=== PATIENT | male | born 1960 | race Caucasian/White ===

== ENCOUNTER 2017-11-04 20:20 | Inpatient (IN) | payer BC, OTHER ==
[2017-11-04] MEDS: SODIUM CHLORIDE 0.9% 1L BAG IV* (22:16)
[2017-11-04] MEDS: PIPER-TAZO 3.375 GM IV (PMX) 100 ML IVPB (22:17)
[2017-11-04 22:41] LABS: ADD MAN DIFF? NO
[2017-11-04 22:43] LABS: WHITE BLOOD COUNT 13.6 10^3/ul (4.8-10.8)
[2017-11-04 22:43] LABS: BASOPHILS % 0.3 % (0.0-2.0); HEMOGLOBIN 14.5 g/dl (14.0-18.0); LYMPHOCYTES # 0.7 10^3/ul (0.8-2.9); LYMPHOCYTES % 5.4 % (15.0-51.0); MEAN CORPUSCULAR HEMOGLOBIN 29.4 pg (29.0-33.0); MEAN CORPUSCULAR HGB CONC 33.7 g/dl (32.0-37.0); MEAN CORPUSCULAR VOLUME 87.2 fl (82.0-101.0); MEAN PLATELET VOLUME 10.1 fl (7.4-10.4); MONOCYTE # 0.6 10^3/ul (0.3-0.9); MONOCYTES % 4.3 % (0.0-11.0); NEUTROPHIL # 12.2 10^3/ul (1.6-7.5); NEUTROPHILS % 89.5 % (39.0-77.0); PLATELET COUNT 136 10^3/UL (140-415); POSITIVE DIFF @See below; RED BLOOD COUNT 4.93 10^6/ul (4.70-6.10); RED CELL DISTRIBUTION WIDTH 12.5 % (11.5-14.5)
[2017-11-04 22:47] LABS: ADD UMIC YES; UR ASCORBIC ACID 20 mg/dL (NEGATIVE); UR BACTERIA FEW /HPF (NONE SEEN); UR BILIRUBIN (Dip) NEGATIVE (NEGATIVE); UR BLOOD (Dip) 2+ mg/dL (NEGATIVE); UR CLARITY CLEAR (CLEAR); UR COLOR AMBER (YELLOW); UR GLUCOSE (Dip) 1+ mg/dL (NEGATIVE); UR KETONES (Dip) 2+ mg/dL (NEGATIVE); UR LEUKOCYTE ESTERASE (Dip) NEGATIVE Leu/ul (NEGATIVE); UR MUCUS FEW /HPF (NONE SEEN); UR NITRITE (Dip) NEGATIVE (NEGATIVE); UR RBC 1 /HPF (0-5); UR SPECIFIC GRAVITY (Dip) 1.027 (1.003-1.030); UR TOTAL PROTEIN (Dip) 2+ mg/dl (NEGATIVE); UR UROBILINOGEN (Dip) 2+ mg/dL (NEGATIVE); UR WBC 1 /HPF (0-5)
[2017-11-04] MEDS: morphine 4 MG/ML VIAL IV (22:55)
[2017-11-04] MEDS: ONDANSETRON 4 MG INJ IV (22:55)
[2017-11-04 23:11] LABS: INR 1.18; PROTIME 15.2 Sec (11.9-14.9); PT RATIO 1.2
[2017-11-04 23:12] LABS: PARTIAL THROMBOPLASTIN TIME 31.6 Sec (25.0-35.0)
[2017-11-04 23:17] LABS: ALANINE AMINOTRANSFERASE 36 IU/L (13-69); ALBUMIN 4.5 g/dl (3.3-4.9); ALBUMIN/GLOBULIN RATIO 1.36; ALKALINE PHOSPHATASE 98 IU/L (42-121); ANION GAP 22 (8-16); ASPARTATE AMINO TRANSFERASE 27 IU/L (15-46); BLOOD UREA NITROGEN 14 mg/dl (7-20); CALCIUM 9.2 mg/dl (8.4-10.2); CARBON DIOXIDE 21 mmol/L (21-31); CHLORIDE 103 mmol/L (97-110); CREATININE 0.82 mg/dl (0.61-1.24); GLUCOSE 182 mg/dl (70-220); SODIUM 142 mmol/L (135-144); TOTAL PROTEIN 7.8 g/dl (6.1-8.1)
[2017-11-04 23:32] LABS: TROPONIN-I < 0.012 ng/ml (0.00-0.12)
[2017-11-05] MEDS: VANCOMYCIN 1 GM (PMX) 250 ML IVPB (00:15)
[2017-11-05] MEDS ORDERED: ACETAMINOPHEN 325 MG TAB PO ×2 (00:30→02:30)
[2017-11-05] MEDS ORDERED: ONDANSETRON 4 MG INJ IV ×2 (00:30→02:30)
[2017-11-05] MEDS: ALBUTEROL 0.083% (NEB) 2.5 MG/3 ML AMP HHN (00:54)
[2017-11-05] MEDS: IPRATROPIUM (NEB) 0.5 MG/2.5 ML AMP HHN (00:54)
[2017-11-05 02:23] LABS: LACTIC ACID 1.6 mmol/L (0.5-2.0)
[2017-11-05] MEDS ORDERED: BISACODYL (EC) 5 MG TAB PO (02:30)
[2017-11-05] MEDS ORDERED: NACL 0.9% 3 ML SYG IV (02:30)
[2017-11-05] MEDS ORDERED: DOCUSATE SODIUM 100 MG CAP PO (02:30)
[2017-11-05 03:46] LABS: LACTIC ACID 1.7 mmol/L (0.5-2.0)
[2017-11-05] MEDS ORDERED: LEVOFLOXACIN 750MG/D5W (PMX) 150 ML IVPB (04:00)
[2017-11-05] MEDS ORDERED: IPRATROPIUM (NEB) 0.5 MG/2.5 ML AMP HHN (04:00)
[2017-11-05] MEDS: AMLODIPINE 5 MG TAB PO ×2 (04:31→09:27)
[2017-11-05] MEDS ORDERED: VANCOMYCIN IV PER PHARMACY XX (05:00)
[2017-11-05] MEDS: NACL 3% FOR INHALATION 15 ML NEBU NEB (05:21)
[2017-11-05] MEDS: LEVALBUTEROL (NEB) 0.63 MG/3 ML AMP HHN ×5 (05:21→20:27)
[2017-11-05] MEDS: PIPER-TAZO 3.375 GM IV (PMX) 100 ML IVPB ×3 (06:00→17:45)
[2017-11-05 06:27] LABS: ADD MAN DIFF? NO; HAAIG REFLEX REFLEX FILED
[2017-11-05 06:35] LABS: BASOPHILS % 0.1 % (0.0-2.0); HEMATOCRIT 38.5 % (42.0-52.0); HEMOGLOBIN 13.5 g/dl (14.0-18.0); LYMPHOCYTES # 1.4 10^3/ul (0.8-2.9); LYMPHOCYTES % 11.3 % (15.0-51.0); MEAN CORPUSCULAR HEMOGLOBIN 30.7 pg (29.0-33.0); MEAN CORPUSCULAR HGB CONC 35.1 g/dl (32.0-37.0); MEAN CORPUSCULAR VOLUME 87.5 fl (82.0-101.0); MEAN PLATELET VOLUME 10.4 fl (7.4-10.4); MONOCYTES % 7.9 % (0.0-11.0); NEUTROPHIL # 9.7 10^3/ul (1.6-7.5); NEUTROPHILS % 80.1 % (39.0-77.0); PLATELET COUNT 125 10^3/UL (140-415); POSITIVE DIFF @See below; RED CELL DISTRIBUTION WIDTH 12.8 % (11.5-14.5)
[2017-11-05 06:35] LABS: WHITE BLOOD COUNT 12.1 10^3/ul (4.8-10.8)
[2017-11-05 06:42] LABS: LACTIC ACID 1.4 mmol/L (0.5-2.0)
[2017-11-05 06:47] LABS: ALANINE AMINOTRANSFERASE 33 IU/L (13-69); ALBUMIN 3.6 g/dl (3.3-4.9); ALBUMIN/GLOBULIN RATIO 1.05; ALKALINE PHOSPHATASE 83 IU/L (42-121); ANION GAP 14 (8-16); ASPARTATE AMINO TRANSFERASE 25 IU/L (15-46); BILIRUBIN,INDIRECT 0.6 mg/dl (0-1.1); BILIRUBIN,TOTAL 0.6 mg/dl (0.2-1.3); BLOOD UREA NITROGEN 11 mg/dl (7-20); CALCIUM 8.5 mg/dl (8.4-10.2); CARBON DIOXIDE 22 mmol/L (21-31); CHLORIDE 109 mmol/L (97-110); CHOL/HDL RATIO 3.1 RATIO; CHOLESTEROL 110 mg/dl (100-200); CREATININE 0.69 mg/dl (0.61-1.24); GLUCOSE 172 mg/dl (70-220); HDL CHOLESTEROL 35 mg/dl (28-71); LDL CHOLESTEROL,CALCULATED 66 mg/dl; MAGNESIUM 1.9 mg/dl (1.7-2.5); POTASSIUM 3.5 mmol/L (3.5-5.1); SODIUM 141 mmol/L (135-144); TRIGLYCERIDES 45 mg/dl (0-149)
[2017-11-05 06:58] LABS: C-REACTIVE PROTEIN 18.8 mg/dl (0.0-0.9)
[2017-11-05 07:57] LABS: ERYTHROCYTE SEDIMENTATION RATE 40 mm/Hr (0-20)
[2017-11-05 08:00] LABS: HEMOGLOBIN A1C 6.5 % (0-5.9)
[2017-11-05 08:03] LABS: HEPATITIS B SURFACE ANTIGEN NEGATIVE (NEGATIVE)
[2017-11-05 08:20] LABS: HEPATITIS B CORE ANTIBODY NEGATIVE (NEGATIVE); HEPATITIS C VIRAL ANTIBODY NEGATIVE (NEGATIVE)
[2017-11-05] MEDS: VANCOMYCIN 1.5 GM in SOD CHLORIDE 0.9% 250 ML IVPB ×2 (09:26→21:01)
[2017-11-05] MEDS: predniSONE 50 MG TAB PO (09:26)
[2017-11-05 10:46] LABS: ANISOCYTOSIS 1+ (0-0); BAND NEUTROPHILS #M 0.2 10^3/ul (0.0-0.6); BAND NEUTROPHILS % (M) 2 % (0-4); LYMPHOCYTES #M 0.9 10^3/ul (0.8-2.9); LYMPHOCYTES % (M) 8 % (15-51); MONOCYTE #M 1.3 10^3/ul (0.3-0.9); MONOCYTES % (M) 11 % (0-11); PLASMA CELLS #M 0.1 10^3/ul (0.0-0.0); PLASMAC%(M) 1 % (0); PLATELET ESTIMATE DECREASED; SEG NEUT #M 9.5 10^3/ul (1.6-7.5); SEGMENTED NEUTROPHILS (M) % 78 % (39-77); SMUDGE%M 1 % (0-0)
[2017-11-06] MEDS: PIPER-TAZO 3.375 GM IV (PMX) 100 ML IVPB ×4 (00:26→17:35)
[2017-11-06] MEDS: LEVALBUTEROL (NEB) 0.63 MG/3 ML AMP HHN ×6 (01:57→19:23)
[2017-11-06 06:35] LABS: ADD MAN DIFF? NO
[2017-11-06 06:45] LABS: BASOPHILS % 0.2 % (0.0-2.0); EOSINOPHILS % 0.1 % (0.0-7.0); HEMATOCRIT 38.3 % (42.0-52.0); HEMOGLOBIN 13.5 g/dl (14.0-18.0); LYMPHOCYTES # 1.6 10^3/ul (0.8-2.9); LYMPHOCYTES % 14.3 % (15.0-51.0); MEAN CORPUSCULAR HEMOGLOBIN 30.5 pg (29.0-33.0); MEAN CORPUSCULAR HGB CONC 35.2 g/dl (32.0-37.0); MEAN CORPUSCULAR VOLUME 86.5 fl (82.0-101.0); MEAN PLATELET VOLUME 10.6 fl (7.4-10.4); MONOCYTE # 0.7 10^3/ul (0.3-0.9); MONOCYTES % 6.2 % (0.0-11.0); NEUTROPHIL # 8.6 10^3/ul (1.6-7.5); NEUTROPHILS % 78.6 % (39.0-77.0); PLATELET COUNT 137 10^3/UL (140-415); RED BLOOD COUNT 4.43 10^6/ul (4.70-6.10); RED CELL DISTRIBUTION WIDTH 12.5 % (11.5-14.5)
[2017-11-06 06:45] LABS: WHITE BLOOD COUNT 10.9 10^3/ul (4.8-10.8)
[2017-11-06 07:09] LABS: PHOSPHORUS 2.6 mg/dl (2.5-4.9)
[2017-11-06 07:09] LABS: MAGNESIUM 1.9 mg/dl (1.7-2.5)
[2017-11-06 07:11] LABS: ALANINE AMINOTRANSFERASE 32 IU/L (13-69); ALBUMIN 3.6 g/dl (3.3-4.9); ALBUMIN/GLOBULIN RATIO 1.12; ALKALINE PHOSPHATASE 83 IU/L (42-121); ANION GAP 13 (8-16); ASPARTATE AMINO TRANSFERASE 26 IU/L (15-46); BILIRUBIN,INDIRECT 0.1 mg/dl (0-1.1); BILIRUBIN,TOTAL 0.1 mg/dl (0.2-1.3); BLOOD UREA NITROGEN 13 mg/dl (7-20); CALCIUM 8.5 mg/dl (8.4-10.2); CARBON DIOXIDE 25 mmol/L (21-31); CHLORIDE 108 mmol/L (97-110); CREATININE 0.68 mg/dl (0.61-1.24); GLUCOSE 169 mg/dl (70-220); POTASSIUM 3.3 mmol/L (3.5-5.1); SODIUM 143 mmol/L (135-144); TOTAL PROTEIN 6.8 g/dl (6.1-8.1)
[2017-11-06] MEDS: predniSONE 50 MG TAB PO (08:43)
[2017-11-06] MEDS: VANCOMYCIN 1.5 GM in SOD CHLORIDE 0.9% 250 ML IVPB ×2 (08:43→21:07)
[2017-11-06] MEDS: AMLODIPINE 5 MG TAB PO (08:44)
[2017-11-06] MEDS: INFLUENZA VIRUS VACCINE 0.5 ML (DISPENSING) IM* ×2 (08:45→08:51)
[2017-11-06 20:27] LABS: VANCOMYCIN,TROUGH 8.1 ug/ml (10.0-20.0)
[2017-11-07] MEDS: LEVALBUTEROL (NEB) 0.63 MG/3 ML AMP HHN ×6 (00:27→21:09)
[2017-11-07] MEDS: PIPER-TAZO 3.375 GM IV (PMX) 100 ML IVPB ×3 (01:47→11:56)
[2017-11-07] MEDS ORDERED: SOD CHLORIDE 0.9% IVPB (08:30)
[2017-11-07] MEDS ORDERED: VANCOMYCIN IVPB (08:30)
[2017-11-07] MEDS ORDERED: VANCOMYCIN 1.75 GM in DEXTROSE 5% 500 ML IVPB ×2 (08:30→20:30)
[2017-11-07] MEDS: AMLODIPINE 5 MG TAB PO (08:32)
[2017-11-07] MEDS: predniSONE 50 MG TAB PO (08:32)
[2017-11-07 13:37] LABS: ANA SCREEN NEGATIVE (NEGATIVE)
[2017-11-07] MEDS ORDERED: VANCOMYCIN 1.25 GM in SOD CHLORIDE 0.9% 250 ML IVPB (16:00)
[2017-11-07] MEDS: LEVOFLOXACIN 500 MG TAB PO (16:02)
[2017-11-07 16:36] LABS: LYME 18 KD (IGG) BAND NON-REACTIVE; LYME 23 KD (IGG) BAND NON-REACTIVE; LYME 23 KD (IGM) BAND NON-REACTIVE; LYME 28 KD (IGG) BAND NON-REACTIVE; LYME 30 KD (IGG) BAND NON-REACTIVE; LYME 39 KD (IGG) BAND NON-REACTIVE; LYME 39 KD (IGM) BAND NON-REACTIVE; LYME 41 KD (IGG) BAND REACTIVE; LYME 41 KD (IGM) BAND REACTIVE; LYME 45 KD (IGG) BAND NON-REACTIVE; LYME 58 KD (IGG) BAND NON-REACTIVE; LYME 66 KD (IGG) BAND NON-REACTIVE; LYME 93 KD (IGG) BAND REACTIVE
[2017-11-07 17:22] LABS: PSA, FREE 0.2 ng/mL
[2017-11-07 22:42] LABS: NIL 0.03 IU/mL; QUANTIFERON(R)-TB GOLD NEGATIVE (NEGATIVE); TB-NIL 0.01 IU/mL
[2017-11-08] MEDS: LEVALBUTEROL (NEB) 0.63 MG/3 ML AMP HHN ×3 (00:45→11:40)
[2017-11-08] MEDS: LEVOFLOXACIN 500 MG TAB PO (05:36)
[2017-11-08] MEDS: AMLODIPINE 5 MG TAB PO (09:18)
[2017-11-08] MEDS: predniSONE 50 MG TAB PO (09:18)
== END 2017-11-08 12:28 | disposition home or self-care (01) | DRG 871 ==
LOC: PP2 11-05 00:12 → E/R 20:20
DX: A41.9 Sepsis, unspecified organism (principal); J18.9 Pneumonia, unspecified organism; J45.901 Unspecified asthma with (acute) exacerbation; I10 Essential (primary) hypertension; M19.90 Unspecified osteoarthritis, unspecified site
CPT/HCPCS: 36415; 71045; 71250; 80053; 80061; 80202; 81001; 83036; 83605; 83735; 84100; 84153; 84154; 84443; 84484; 85025; 85610; 85651; 85730; 86038; 86140; 86480; 86617; 86704; 86709; 86803; 87040; 87070; 87086; 87207; 87340; 87400; 87449; 89190; 90686; 93005; 94640; 94664; 96374; 96375; 99291-25